=== PATIENT | female | born 1985 | race African-American/Black ===

== ENCOUNTER 2019-09-22 00:16 | Emergency (ER) | payer OTHER, SELFPAY ==
[2019-09-22 00:11] VITALS: BP 130/83; PULSE 113; RESP 20; TEMP 37.1; O2SAT 98
[2019-09-22 00:29] VITALS: O2SAT 98
[2019-09-22 00:44] VITALS: PULSE 124; RESP 24
[2019-09-22] MEDS: ALBUTEROL SULFATE NEB 2.5 MG/0.5 ML INH 5 MG INHALATION (00:44)
--- NOTE | 2019-09-22 00:44 | PC.NURSE ---
Respiratory in room with patient at this time.
[2019-09-22 00:53] VITALS: PULSE 117; RESP 18
--- NOTE | 2019-09-22 01:06 | PC.NURSE ---
This nurse went into room and spoke with patient.Patient stating she does feel better after her neb treatment. Patient states I do feel a little better, I just keep wheezing. ERP in room.
--- NOTE | 2019-09-22 01:13 | ED.ASTHMA ---
HPI - Asthma General Chief Complaint: Asthma Stated Complaint: sob Time Seen by Provider: 09/22/19 00:50 History of Present Illness HPI Narrative: Patient presents for 3 days of increasing wheezing and coughing. She is already taken a Z-Martínez without improvement. Last night she was at [facility] where they gave her steroids. Her diesel plant operator called in a Medrol Dosepak for her that she can start in the morning. She has a nebulizer at her house, with albuterol. She is 33 weeks . She is not having contractions. She wants to be admitted. complaint: asthma attack Onset (ago): day(s) Severity: moderate Related Data Allergies Allergy/AdvReac Type Severity Reaction Status Date / Time Penicillins Allergy Rash Verified 09/22/19 00:30 Review of Systems Review of Systems: Narrative: CONSTITUTIONAL: Denies fever, chills, or sweats. EYES: Denies visual changes, redness, or discharge. ENT: Denies rhinorrhea, congestion, sore throat, or otalgia. CARDIOVASCULAR: Denies chest pain, but does have fast heart rate. RESPIRATORY: He has cough and wheezing GASTROINTESTINAL: Denies abdominal pain, nausea, vomiting, or diarrhea. GENITOURINARY: Denies dysuria or hematuria. SKIN: Denies rash or itching. . [facility] Past Medical History Medical History (Updated 09/22/19 @ 01:19 by Maryanne Harrison MD) Asthma Exam Narrative: Exam Narrative: GENERAL: Well-appearing, well-nourished, and in no acute distress. HEAD: Normocephalic, atraumatic. EYES: PERRLA and EOMI. ENT: Nares clear, no rhinorrhea or epistaxis. Mucous membranes moist. NECK: Supple. CHEST: End expiratory wheezes. no respiratory distress. HEART: Regular rate and rhythm. Tacky. no murmur heard. Normal peripheral pulses. ABDOMEN: Soft, nontender, nondistended, normal active bowel sounds. EXTREMITIES: Normal range of motion. No edema. SKIN: Warm, dry, no rash. NEURO: No focal deficits. Alert and oriented x3. PSYCH: Normal mood and affect. Course Reevaluation(s) Reevaluation #1: She is so much better after her second treatment. There is only scant end expiratory wheeze left. She can be discharged to home. Date: 09/22/19 Time: 02:34 Consultations Consultation #1: Call Dr. Ham and spoke with Dr. Morrow. He said that no arrangements were made for admission. I should treat her as I feel best for her asthma. I think she can have another treatment and then be discharged to home. He agrees. Date: 09/22/19 Time: 01:17 Vital Signs Vital signs: Vital Signs Temperature 98.8 F 09/22/19 00:11 Pulse Rate 113 H 09/22/19 00:11 Respiratory Rate 20 09/22/19 00:11 Blood Pressure 130/83 09/22/19 00:11 Pulse Oximetry 98 09/22/19 00:11 Temperature 98.8 F 09/22/19 00:11 Pulse Rate 124 H 09/22/19 01:27 Respiratory Rate 22 H 09/22/19 01:27 Blood Pressure 130/83 09/22/19 00:11 Pulse Oximetry 96 09/22/19 01:27 MDM - Asthma Differential Diagnosis Differential diagnosis: Likely Acute asthmatic bronchitis Medical Records Attestation: I reviewed the patient's medical records. Discharge Plan Discharge Clinical Impression: Asthma Qualifiers: Asthma severity: mild Asthma persistence: persistent Asthma complication type: unspecified Qualified Code(s): J45.30 - Mild persistent asthma, uncomplicated Complication of Qualifiers: Trimester: third trimester Qualified Code(s): O26.93 - related conditions, unspecified, third trimester Patient Disposition: Home, Self-Care Condition: Stable Instructions: Asthma (ED) Follow-up/Referrals: Elizabeth Horn MD [Physician] - (Call make an appointment with our lung specialist for your asthma) PHYSICIAN,METER MECHANIC [Primary Care Provider] - Time of Disposition: 02:33
[2019-09-22] MEDS: ALBUTEROL SULFATE NEB 2.5 MG/0.5 ML INH 10 MG INHALATION (01:26)
[2019-09-22 01:27] VITALS: PULSE 124; RESP 22; O2SAT 96
[2019-09-22 03:03] VITALS: BP 117/70; PULSE 123; RESP 17; O2SAT 100
== END 2019-09-22 03:05 | disposition home or self-care (01) ==
PROVIDERS: Emergency Provider Emergency Medicine
DX: O99.513 Diseases of the respiratory system complicating pregnancy, third trimester (principal); Z3A.33 33 weeks gestation of pregnancy; J45.30 Mild persistent asthma, uncomplicated
CPT/HCPCS: 94640; 99283

== ENCOUNTER 2019-11-03 00:57 | Inpatient (IN) | payer OTHER, SELFPAY ==
[2019-11-03] VITALS (82 sets, daily range): BP systolic 93–167; BP diastolic 39–127; PULSE 34–297; RESP 16; TEMP 36.5–36.8; O2SAT 78–100; BMI 36.7
--- NOTE | 2019-11-03 00:57 | LDADM ---
This patient, Leslie Emmanuel, was admitted to Labor/Delivery/Recovery 106 on 11/03/19 at 00:57. Plans for labor, pain management and were discussed with patient. Patient/family oriented to hospital policies and general routines including ID bracelet, bed and alarms, visiting hours, pain management, procedures, bathroom and other care routines, personal items, smoking policy, room service/diet and guest tray routines, infant security routines, and visiting hours. Patient/Family are encouraged to report perceived risks to care and to ask questions if they do not understand what they are told or what they should do. See OBIX for further documentation.
[2019-11-03 04:20] LABS: Basophils Percent Auto 0.5 % (0.2-1.2); Eosinophils Absolute Auto 0.2 K/mm3 (0-0.3); Eosinophils Percent Auto 2.8 % (0-4.4); Hematocrit 33.9 % (37.0-47.0); Hemoglobin 10.7 g/dL (12.0-15.0); Immature Granulocyte Absolute 0.02 K/mm3 (0.00-0.031); Immature Granulocyte Percent A 0.3 % (0-0.5); Lymphocytes Absolute Auto 1.99 K/mm3 (0.9-3.2); Lymphocytes Percent Auto 26.2 % (18.3-44.2); Mean Corpuscular HGB Conc 31.6 g/dl (32-36); Mean Corpuscular Hemoglobin 23.5 pg (26-34); Mean Corpuscular Volume 74.3 fl (80-100); Mean Platelet Volume 11.3 fl (7.4-10.4); Monocytes Absolute Auto 0.6 K/mm3 (0.1-0.6); Monocytes Percent Auto 7.6 % (2.6-8.5); Neutrophils Absolute Auto 4.8 K/mm3 (1.3-6.7); Neutrophils Percent Auto 62.6 % (45.5-73.1); Platelet Count Result 307 k/mm3 (150-375); Red Blood Count 4.56 M/mm3 (4.2-5.4); Red Cell Distribution Width 17.8 % (11.5-14.5); White Blood Count 7.6 K/mm3 (4.5-10.0)
[2019-11-03] MEDS: LACTATED RINGERS 1,000 ML 125 ML IV CONT ×2 (04:26→17:38)
[2019-11-03] MEDS: CLINDAMYCIN 900 MG/NS 50 ML 900 MG/50 ML PIGGYBACK 50 MG IVPB ×2 (04:27→12:38)
[2019-11-03 04:40] LABS: Amphetamine Screen Urine Negative (Negative); Barbiturate Screen Urine Negative (Negative); Benzodiazepines Screen Urine Negative (Negative); Cannabinoid Screen Urine Negative (Negative); Cocaine Screen Urine Negative (Negative); Methadone Screen Urine Negative (Negative); Opiate Screen Urine Negative (Negative); Phencyclidine Screen Urine Negative (Negative)
--- NOTE | 2019-11-03 07:39 | WPDANESEPP ---
Anes - Eval Pre Procedure Procedure: labor epidural Date/Time: 11/03/19 07:39 Preop Diagnosis: labor pain Pre Op Diagnosis: Contractions Patient Data Age: 34 Gender: F Height: 5 ft 3 in Weight: 94 kg Last Vital Signs Temp 36.6 C 11/03/19 03:20 Pulse 86 11/03/19 07:16 BP 119/39 L 11/03/19 07:16 Allergies Allergy/AdvReac Type Severity Reaction Status Date / Time Penicillins Allergy Rash Verified 11/03/19 04:34 Home Medications Medication Instructions Recorded Confirmed Type albuterol sulfate 2 puff INHALATION Q4-6H 10/23/19 11/03/19 History albuterol sulfate 2.5 mg INHALATION TID PRN 10/23/19 11/03/19 History buspirone 10 mg PO BID 10/23/19 11/03/19 History cetirizine 10 mg PO DAILY 10/23/19 11/03/19 History ferrous sulfate [Iron (ferrous 325 mg PO BID 10/23/19 11/03/19 History sulfate)] mometasone-formoterol [Dulera] 2 puff INHALATION Q12H 10/23/19 11/03/19 History montelukast [Singulair] 10 mg PO DAILY 10/23/19 11/03/19 History [id number] fum-folic ac-om3 1 pkg PO DAILY 10/23/19 11/03/19 History [Daily ] terbutaline 2.5 mg PO PRN PRN 10/23/19 10/23/19 History Laboratory Tests 11/03/19 11/03/19 11/03/19 04:10 04:10 04:10 WBC 7.6 K/mm3 K/mm3 (4.5-10.0) RBC 4.56 M/mm3 M/mm3 (4.2-5.4) Hgb 10.7 g/dL L g/dL (12.0-15.0) Hct 33.9 % L % (37.0-47.0) MCV 74.3 fl L fl (80-100) MCH 23.5 pg L pg (26-34) MCHC 31.6 g/dl L g/dl (32-36) RDW 17.8 % H % (11.5-14.5) Plt Count 307 k/mm3 k/mm3 (150-375) MPV 11.3 fl H fl (7.4-10.4) Immature Gran % (Auto) 0.3 % % (0-0.5) Neut % (Auto) 62.6 % % (45.5-73.1) Lymph % (Auto) 26.2 % % (18.3-44.2) Branch % (Auto) 7.6 % % (2.6-8.5) Eos % (Auto) 2.8 % % (0-4.4) Baso % (Auto) 0.5 % % (0.2-1.2) Lymph # (Auto) 1.99 K/mm3 K/mm3 (0.9-3.2) Branch # (Auto) 0.6 K/mm3 K/mm3 (0.1-0.6) Eos # (Auto) 0.2 K/mm3 K/mm3 (0-0.3) Baso # (Auto) 0.0 K/mm3 K/mm3 (0.0-0.1) Abs Immat Gran (auto) 0.02 K/mm3 K/mm3 (0.00-0.031) Absolute Neuts (auto) 4.8 K/mm3 K/mm3 (1.3-6.7) Absolute Nucleated RBC 0.0 K/mm3 K/mm3 (0.0-0.012) Nucleated RBC % 0.0 % % (0.0-0.2) Urine Opiates Screen Urine Methadone Screen Ur Barbiturates Screen Ur Phencyclidine Scrn Ur Amphetamine Screen U Benzodiazepines Scrn Urine Cocaine Screen U Cannabinoids Screen RPR Pending Blood Type AB Positive Antibody Screen Negative 11/03/19 04:13 WBC RBC Hgb Hct MCV MCH MCHC RDW Plt Count MPV Immature Gran % (Auto) Neut % (Auto) Lymph % (Auto) Branch % (Auto) Eos % (Auto) Baso % (Auto) Lymph # (Auto) Branch # (Auto) Eos # (Auto) Baso # (Auto) Abs Immat Gran (auto) Absolute Neuts (auto) Absolute Nucleated RBC Nucleated RBC % Urine Opiates Screen Negative (Negative) Urine Methadone Screen Negative (Negative) Ur Barbiturates Screen Negative (Negative) Ur Phencyclidine Scrn Negative (Negative) Ur Amphetamine Screen Negative (Negative) U Benzodiazepines Scrn Negative (Negative) Urine Cocaine Screen Negative (Negative) U Cannabinoids Screen Negative (Negative) RPR Blood Type Antibody Screen Patient hx anesthesia problems: none Family hx anesthesia problems: none PMFSH Past Medical History Medical History (Updated 09/23/19 @ 00:00 by Jyotsna Carter) Asthma Family History Family History (Updated 10/23/19 @ 12:49 by Bruna Mackay RN) Father Acute myocardial infarction
[2019-11-03 09:05] LABS: Rapid Plasma Reagin Non-Reactive (NonReactive)
[2019-11-03] MEDS: OXYTOCIN 30 UNITS/NS 500 ML 30 UNITS/500 ML BAG 125 UNITS IV CONT ×2 (13:14→18:59)
--- NOTE | 2019-11-03 18:40 | P.PCNOB_ITS ---
OB - Delivery Note Procedure Route of delivery: Laceration description: Vaginal - 1st Degree Delivery repair: chromic Specimen: No Estimated blood loss (mL): 300 Anesthesia type: Epidural Disposition: floor Narrative: Patient prepped draped usual manner for this procedure. Maternal expulsive efforts readily delivered vertex. Rest of baby was delivered without difficulty cord clamped cut and the placenta delivered spontaneously. Uterus was well contracted and inspection of the cervix vagina and vulva revealed first-degree laceration. This was approximated using 2 0 chromic in a running interlocking manner with good approximation hemostasis noted. This point seizure was considered terminated. [place] Baby Weeks of gestation at delivery: 38 Infant gender: Male Weight (pounds): 7 Weight (ounces): 8 score one minute: 9 score five minutes: 9
[2019-11-03] MEDS: BENZOCAINE 20% AER SPR (*SP) 56 GM CAN 1 SPRAY TOPICAL (20:37)
[2019-11-03] MEDS: WITCH HAZEL 40 PADS 1 PAD TOPICAL (20:37)
[2019-11-03] MEDS: IBUPROFEN 600 MG TABLET PO (20:37)
[2019-11-04] MEDS: ACETAMINOPHEN 325 MG TABLET 650 MG PO ×2 (00:59→11:15)
--- NOTE | 2019-11-04 01:50 | PC.NURSE ---
This patient, Leslie Emmanuel, was received from Labor and Delivery on 11/03/19 [id number]. Personal belongings list checked and signed. Patient/family oriented to unit policies and routines
[2019-11-04 05:19] LABS: Hematocrit 31.6 % (37.0-47.0); Hemoglobin 10.2 g/dL (12.0-15.0)
--- NOTE | 2019-11-04 07:28 | WPDANLDPN2 ---
Anes-Prog Note L&D Date/Time: 11/04/19 07:28 Comfortable throughout: labor and delivery Neuraxial method: epidural Epidural/Spinal procedure site: clean & non-tender Neuro status: Neuro function grossly intact. Cardiovascular status: normal Respiratory status: normal Airway patency: baseline Mental status: baseline Post-Op hydration status: normal Vital Signs: Last Vital Signs Temp 36.6 C 11/03/19 22:00 Pulse 69 11/03/19 22:00 Resp 16 11/03/19 22:00 BP 133/86 11/03/19 22:00 Pulse Ox 100 11/03/19 22:00 I/O: Intake & Output 11/03/19 11/03/19 11/04/19 15:59 23:59 07:59 Intake Total 1950 Output Total 402 Balance 1548 Post-procedural complaints: none Patient feedback: Patient satisfied with anesthetic care.
[2019-11-04 07:30] VITALS: BP 112/76; PULSE 83; RESP 18; TEMP 36.8; O2SAT 100
[2019-11-04] MEDS: IBUPROFEN 600 MG TABLET PO ×3 (07:57→23:25)
[2019-11-04] MEDS: MULTIVIT/MIN/PREN/FOL AC/IRON TABLET 1 TAB PO (11:13)
[2019-11-04] MEDS: MONTELUKAST SODIUM 10 MG TABLET PO (14:34)
[2019-11-04] MEDS: FERROUS SULFATE 324 MG TABLET PO (14:34)
--- NOTE | 2019-11-04 20:10 | PM.IMHP ---
H&P: HPI History of Present Illness Date/Time: 11/03/19 03:10 Chief complaint: Contractions Narrative: Leslie Emmanuel is a 34 year old female at 39 weeks rowdy 11/11/19 here in spontaneous labor Review of Systems Review of Systems: All systems reviewed & are unremarkable except as noted in HPI and below Constitutional: Constitutional: Reports no additional constitutional complaints Eyes: Eyes: Reports no additional eye complaints ENT: Reports system reviewed and no additional complaints, except as documented Cardiovascular: Cardiovascular: Reports no additional cardiovascular complaints Respiratory: Respiratory: Reports no additional respiratory complaints Gastrointestinal: Gastrointestinal: Reports no additional gastrointestinal complaints Genitourinary: Genitourinary: Reports no additional female genitourinary complaints Musculoskeletal: Musculoskeletal: Reports no additional musculoskeletal complaints Integumentary/Breasts: Skin/Breast: Reports system reviewed and no additional complaints, except as docu Neurologic: Reports system reviewed and no additional complaints, except as documented Psychiatric: Psychiatric: Reports no additional psychiatric complaints Endocrine: Endocrine: Reports no additional endocrine complaints Hematologic/Lymphatic: Hematologic/Lymphatic: Reports no additional hematologic/lymphatic complaints Allergic/Immunologic: Allergic/Immunologic: Reports no additional allergic/immunologic complaints [facility] Past Medical History Medical History (Updated 11/04/19 @ 20:21 by Nash Ham MD) Anemia Asthma Cardiac arrhythmia KEELY (generalized anxiety disorder) GBS (group B streptococcus) infection MRSA (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 Panic disorder with agoraphobia Vaginal delivery 2000,2004,2006,2008,2011,2015 4 boys 2 girls Family History Family History Father Acute myocardial infarction Mother Cerebrovascular accident Grandparent Cerebrovascular accident Diabetes mellitus Social History Social History (Updated 11/04/19 @ 20:18 by Nash Ham MD) Smoking packs per day: 1 Smoking cigarettes per day: 20.0 Years smoked: 10 Smoking pack-years: 10.00 Smoking status: Former smoker Tobacco type: cigarettes Second hand tobacco smoke exposure: Yes Alcohol intake: never Substance use: never Substance use type: does not use Living arrangements: with family Occupation/Education: occupation 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 Gender identity (if verbalized by the patient): Female Sexual Orientation (if Verbalized by the Patient): Straight or Heterosexual Spiritual care concerns: No Agree to blood products: Yes Meds Home Medications and Allergies Home Medications Medication Instructions Recorded Confirmed Type albuterol sulfate 2 puff INHALATION Q4-6H 10/23/19 11/03/19 History albuterol sulfate 2.5 mg INHALATION TID PRN 10/23/19 11/03/19 History buspirone 10 mg PO BID 10/23/19 11/03/19 History cetirizine 10 mg PO DAILY 10/23/19 11/03/19 History ferrous sulfate [Iron (ferrous 325 mg PO BID 10/23/19 11/03/19 History sulfate)] mometasone-formoterol [Dulera] 2 puff INHALATION Q12H 10/23/19 11/03/19 History montelukast [Singulair] 10 mg PO DAILY 10/23/19 11/03/19 History [id number] fum-folic ac-om3 1 pkg PO DAILY 10/23/19 11/03/19 History [Daily ] terbutaline 2.5 mg PO PRN PRN 10/23/19 10/23/19 History Allergies Allergy/AdvReac Type Severity Reaction Status Date / Time Penicillins Allergy Rash Verified 11/03/19 04:34 Vital Signs Vital Signs - 24 hr 11/03/19 20:15 11/03/19 20:30 11/03/19 22:00 Temperature 97.8 F Pulse Rate 62 62 69 Respiratory Rate 16 Blood Pressure 130/86 126/86 133/86 Pulse Oximetry 100 11/04/19 07:30 Temperature 98.2 F Pulse Rate 83 Respiratory Rate
--- NOTE | 2019-11-04 20:22 | WPDOBADMIT ---
Obstetrics - Admit Note Admission Note: record reviewed. No pertinent additions to the history and/or any subsequent changes in the physical findings that are not consistent with the expected course of the were found. Additions to the history and/or subsequent changes in the physical findings follow. None. sool fht stable
--- NOTE | 2019-11-04 20:22 | WPDHPUPDATE1 ---
History and Physical Update Update Date/Time: 11/04/19 20:22 History and Physical has been reviewed, including an updated exam of the patient. There are NO changes in the patient's condition. Risks, benefits, and alternatives have been discussed and questions answered. Patient agrees to proceed with procedure.
--- NOTE | 2019-11-04 22:37 | PM.OBDSVD ---
DS: Admitting Diagnosis Admitting Diagnosis Admitting Diagnosis: Contractions term spontaneous labor DS: Discharge Diagnosis Discharge Diagnosis (1) Term delivered: Code(s): O80 - Encounter for full-term uncomplicated delivery Status: Acute (2) Spontaneous onset of labor: Status: Acute (3) Term : Code(s): Z34.90 - Encounter for supervision of normal , unspecified, unspecified trimester Status: Acute (4) Anemia: Code(s): D64.9 - Anemia, unspecified Status: Acute (5) Cardiac arrhythmia: Code(s): I49.9 - Cardiac arrhythmia, unspecified Status: Acute (6) KEELY (generalized anxiety disorder): Code(s): F41.1 - Generalized anxiety disorder Status: Acute (7) GBS (group B streptococcus) infection: Code(s): A49.1 - Streptococcal infection, unspecified site Status: Acute (8) MRSA (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: Code(s): Z22.322 - Carrier or suspected carrier of Methicillin resistant Staphylococcus aureus Status: Acute (9) Panic disorder with agoraphobia: Code(s): F40.01 - Agoraphobia with panic disorder Status: Acute OB - DS: Summary Hospital Course Time spent discussing smoking cessation with patient: 3 to 10 minutes OB Procedures : Ultrasound OB Procedures Intrapartum: Spontaneous Vag Delivery OB Procedures: : None Peripartum Data Infant Delivery Method: Natural Vaginal Laceration description: Perineal - 1st Degree complications: none [place] 1: Gender: Male Disposition of : home Status at Discharge Functional status at discharge: independent ambulation Overall status at discharge: patient is progressing back to baseline Time Spent with Patient Time attestation: Total time spent providing and/or coordinating discharge services: Exam Const: General: comfortable and no acute distress Orientation/consciousness: patient oriented x3 Limitations: no limitations HENMT: Head: normal to inspection Eyes: General: appearance normal, both eyes and all related structures Neck: Neck: normal visual inspection Chest: Breast/axilla inspection: normal inspection of the breasts Resp: Effort & Inspection: normal respiratory effort Auscultation: clear to auscultation bilaterally Cardio: Rate: regular rate GI: GI Palp: Yes Soft to palpation Percussion: Yes normal to percussion Auscultation: normal bowel sounds : General: Yes bladder normal to inspection Back/Spine/Pelvis: Back: no CVA tenderness Skin: General skin exam: normal color Neuro: General: oriented to person, oriented to place and patient oriented x3 Cognition (Neuro): normal cognition Speech: normal speech Gait exam (Neuro): Normal gait present Motor exam (neuro): 5/5 motor strength present throughout Extrem: General: normal to inspection and full ROM Psych: Appearance: grossly normal Mental Status: mental status grossly normal Affect: normal affect Attitude: cooperative Thought content: Yes Normal thought content present Judgement: Good judgement present (Psych) DS: Data Data Completed and Pending Labs on day of discharge: Labs from last 24 hours 11/04/19 04:48 Hgb 10.2 L Hct 31.6 L Discharge Plan Discharge Attending physician on discharge: Nash Ham Discharging Clinician: Nash Ham Anticipated Discharge Date/Time: 11/05/19 19:40 Patient Disposition: Home, Self-Care Activity: may shower, no straining and may drive after 2 weeks Diet: as tolerated Wound Care Instructions: follow printed instructions Patient Instructions: Antibiotic Form Stand Alone Forms: General Discharge Information Follow-up/Referrals: Nash Ham MD [Physician] - Discharge Medications: New ibuprofen 600 mg Tablet 600 mg PO Q6H Qty: 90 RF: 1 Continued ferrous sulfate [Iron (radha
--- NOTE | 2019-11-04 22:57 | PM.OBPNVD ---
OB - PN: Subj Subjective Date/time seen: 11/04/19 22:57 ppd1 s/p vag del Patient comments: no complaints, pain well controlled, tolerating diet and flatus present baby status: doing well feeding status: breast and bottle feeding OB - PN: Obj Data Labs CBC & Chem 7: 11/04/19 04:48 Labs: Laboratory Results - last 24 hr 11/04/19 04:48 Hgb 10.2 L Hct 31.6 L OB - PN A/P Assessment and Plan (1) Term delivered: Code(s): O80 - Encounter for full-term uncomplicated delivery Status: Acute (2) GBS (group B streptococcus) infection: Code(s): A49.1 - Streptococcal infection, unspecified site Status: Acute (3) MRSA (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: Code(s): Z22.322 - Carrier or suspected carrier of Methicillin resistant Staphylococcus aureus Status: Acute (4) Asthma: Qualifiers: Asthma complication type: unspecified Asthma persistence: persistent Asthma severity: mild Qualified Code(s): J45.30 - Mild persistent asthma, uncomplicated Code(s): J45.909 - Unspecified asthma, uncomplicated Status: Acute Time Spent With Patient Time: Total time spent is greater than 50% in coordination of care (as documented) at patient's floor/unit and/or counseling patient: Review of Systems Review of Systems: All systems reviewed & are unremarkable except as noted in HPI and below Constitutional: Constitutional: Reports no additional constitutional complaints Cardiovascular: Cardiovascular: Reports no additional cardiovascular complaints Respiratory: Respiratory: Reports no additional respiratory complaints Gastrointestinal: Gastrointestinal: Reports no additional gastrointestinal complaints Genitourinary: Genitourinary: Reports no additional female genitourinary complaints Integumentary/Breasts: Skin/Breast: Reports system reviewed and no additional complaints, except as docu Neurologic: Reports system reviewed and no additional complaints, except as documented Exam Const: General: comfortable and no acute distress Orientation/consciousness: patient oriented x3 Chest: Breast/axilla inspection: normal inspection of the breasts Breast/axilla palpation: normal palpation of the breasts Resp: Effort & Inspection: normal respiratory effort Auscultation: clear to auscultation bilaterally Cardio: Rate: regular rate GI: Auscultation: normal bowel sounds : General: Yes bladder normal to inspection and Yes no CVA tenderness Psych: Appearance: grossly normal Mental Status: mental status grossly normal Affect: normal affect Attitude: cooperative Judgement: Good judgement present (Psych)
[2019-11-04] MEDS: LORATADINE 10 MG TABLET PO (23:25)
[2019-11-04 23:30] VITALS: BP 130/88; PULSE 73; RESP 16; TEMP 36.8; O2SAT 100
[2019-11-05 08:40] VITALS: BP 136/76; PULSE 82; RESP 16; TEMP 36.6; O2SAT 100
[2019-11-05] MEDS: IBUPROFEN 600 MG TABLET PO (09:17)
[2019-11-05] MEDS: LORATADINE 10 MG TABLET PO (09:18)
[2019-11-05] MEDS: DOCUSATE SODIUM 100 MG CAPSULE PO (09:18)
[2019-11-05] MEDS: MONTELUKAST SODIUM 10 MG TABLET PO (09:20)
[2019-11-05] MEDS: FERROUS SULFATE 324 MG TABLET PO (09:20)
[2019-11-05] MEDS: ACETAMINOPHEN 325 MG TABLET 650 MG PO (11:39)
--- NOTE | 2019-11-05 13:09 | PCCCNOTE ---
Care Coordination met with pt. this morning to discuss discharge planning. Per pt.'s RN, pt. informed them that she only has limited supplies to bring baby home. Pt. states that this baby his her eighth child and that there are 7 children in the home. Pt. could not confirm with CC who was watching the children at home while she was hospitalized. Pt. states she has a place for baby to sleep, clothes, and diapers for baby. Pt. does not have a car seat and will be provided one from nursing. Pt. states that she has local family support if needed but she has been social distancing due to Covid 19. FOB does not live in the home and does not appear to be supportive. Pt. states she will return home with her children alone and denies the need for any further support once home. Pt. was provided with resources if needed, she confirms she is current with [facility]. Pt. denies any open or past DCFS cases. Pt. denies any discharge needs at this time and has no concerns with bringing baby home. Will follow.
--- NOTE | 2019-11-05 16:53 | PC.NURSE ---
[id number] Pt watched the Discharge DVD.
--- NOTE | 2019-11-06 02:11 | PCRCNOTE ---
Window of time for administration has passed. See next scheduled administration.
[2019-11-06 09:10] VITALS: BP 126/86; PULSE 63; RESP 20; TEMP 37.1; O2SAT 100
--- NOTE | 2019-11-06 13:46 | PM.OBPNVD ---
OB - PN: Subj Subjective Date/time seen: 11/05/19 13:46 Patient comments: no complaints baby status: doing well [place] feeding status: breast and bottle feeding OB - PN: Obj Data Labs CBC & Chem 7: 11/04/19 04:48 OB - PN A/P Assessment and Plan (1) Term delivered: Code(s): O80 - Encounter for full-term uncomplicated delivery Status: Acute (2) Anemia: Code(s): D64.9 - Anemia, unspecified Status: Acute (3) Cardiac arrhythmia: Code(s): I49.9 - Cardiac arrhythmia, unspecified Status: Acute (4) KEELY (generalized anxiety disorder): Code(s): F41.1 - Generalized anxiety disorder Status: Acute (5) GBS (group B streptococcus) infection: Code(s): A49.1 - Streptococcal infection, unspecified site Status: Acute (6) MRSA (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: Code(s): Z22.322 - Carrier or suspected carrier of Methicillin resistant Staphylococcus aureus Status: Acute (7) Panic disorder with agoraphobia: Code(s): F40.01 - Agoraphobia with panic disorder Status: Acute (8) Asthma: Qualifiers: Asthma complication type: unspecified Asthma persistence: persistent Asthma severity: mild Qualified Code(s): J45.30 - Mild persistent asthma, uncomplicated Code(s): J45.909 - Unspecified asthma, uncomplicated Status: Acute Time Spent With Patient Time: Total time spent is greater than 50% in coordination of care (as documented) at patient's floor/unit and/or counseling patient: Review of Systems Review of Systems: All systems reviewed & are unremarkable except as noted in HPI and below Constitutional: Constitutional: Reports no additional constitutional complaints Cardiovascular: Cardiovascular: Reports no additional cardiovascular complaints Respiratory: Respiratory: Reports no additional respiratory complaints Gastrointestinal: Gastrointestinal: Reports no additional gastrointestinal complaints Genitourinary: Genitourinary: Reports no additional female genitourinary complaints Integumentary/Breasts: Skin/Breast: Reports system reviewed and no additional complaints, except as docu Neurologic: Reports system reviewed and no additional complaints, except as documented Exam Const: General: comfortable, no acute distress, alert and awake Chest: Breast/axilla inspection: normal inspection of the breasts Resp: Effort & Inspection: normal respiratory effort Cardio: Rate: regular rate GI: Auscultation: normal bowel sounds : General: Yes no CVA tenderness Psych: Appearance: grossly normal Mental Status: mental status grossly normal Affect: normal affect Attitude: cooperative Judgement: Good judgement present (Psych)
--- NOTE | 2019-11-06 13:49 | PM.OBDSVD ---
DS: Admitting Diagnosis Admitting Diagnosis Admitting Diagnosis: Contractions Term spontaneous onset of labor DS: Discharge Diagnosis Discharge Diagnosis (1) Term delivered: Code(s): O80 - Encounter for full-term uncomplicated delivery Status: Acute (2) Spontaneous onset of labor: Status: Acute (3) Term : Code(s): Z34.90 - Encounter for supervision of normal , unspecified, unspecified trimester Status: Acute (4) Anemia: Code(s): D64.9 - Anemia, unspecified Status: Acute (5) Cardiac arrhythmia: Code(s): I49.9 - Cardiac arrhythmia, unspecified Status: Acute (6) KEELY (generalized anxiety disorder): Code(s): F41.1 - Generalized anxiety disorder Status: Acute (7) GBS (group B streptococcus) infection: Code(s): A49.1 - Streptococcal infection, unspecified site Status: Acute (8) MRSA (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: Code(s): Z22.322 - Carrier or suspected carrier of Methicillin resistant Staphylococcus aureus Status: Acute (9) Panic disorder with agoraphobia: Code(s): F40.01 - Agoraphobia with panic disorder Status: Acute (10) Asthma: Qualifiers: Asthma complication type: unspecified Asthma persistence: persistent Asthma severity: mild Qualified Code(s): J45.30 - Mild persistent asthma, uncomplicated Code(s): J45.909 - Unspecified asthma, uncomplicated Status: Acute OB - DS: Summary OB Procedures : Ultrasound OB Procedures Intrapartum: Spontaneous Vag Delivery and GBS prophylaxis OB Procedures: : None Peripartum Data Infant Delivery Method: Natural Vaginal Laceration description: Perineal - 1st Degree complications: none [place] 1: Gender: Male Disposition of : home Status at Discharge Functional status at discharge: independent ambulation Overall status at discharge: patient is back to baseline Time Spent with Patient Time attestation: Total time spent providing and/or coordinating discharge services: Time spent: Less than 30 minutes Exam Const: General: comfortable, no acute distress, alert and awake Orientation/consciousness: patient oriented x3 Limitations: no limitations Chest: Breast/axilla inspection: normal inspection of the breasts Breast/axilla palpation: normal palpation of the breasts Resp: Effort & Inspection: normal respiratory effort Auscultation: clear to auscultation bilaterally Cardio: Rate: regular rate GI: GI Palp: Yes Soft to palpation Percussion: Yes normal to percussion : General: Yes no CVA tenderness Manual OB Exam: Deferred manual OB exam Psych: Appearance: grossly normal Mental Status: mental status grossly normal Affect: normal affect Attitude: cooperative Thought content: Yes Normal thought content present Judgement: Good judgement present (Psych) Discharge Plan Discharge Attending physician on discharge: Nash Ham Discharging Clinician: Nash Ham Anticipated Discharge Date/Time: 11/05/19 19:40 Patient Disposition: Home, Self-Care Activity: may shower, no straining and may drive after 2 weeks Diet: as tolerated Wound Care Instructions: follow printed instructions Discharge Instructions: Education: Mom and Baby Guide Given to: Mother Follow-Up: Call your delivering provider's office for an appointment to be seen in: call for appointment as directed Mom and baby should come to the [facility] for the follow-up appointment. Appointment Date/Time: November 06, 2019 at 9:00 am What to expect at your follow-up visit: Blood Pressure Check Physical Assessment Call [phone] if you are unable to keep your appointment time. BREAST CARE: * Wear a snug supportive bra. * For engorgement discomfort: Bottle Feeding: * May apply ice packs
== END 2019-11-05 13:34 | disposition home or self-care (01) | DRG 560 ==
LOC: ANHLDR 03:57 → ANHOB2 21:27
PROVIDERS: Admitting Provider Obstetrics & Gynecology; PCP Internal Medicine; Visit Provider Obstetrics & Gynecology
DX: O99.824 Streptococcus B carrier state complicating childbirth (principal); Z37.0 Single live birth; Z3A.38 38 weeks gestation of pregnancy; O99.02 Anemia complicating childbirth; O70.0 First degree perineal laceration during delivery; Z23 Encounter for immunization; D64.9 Anemia, unspecified; J45.909 Unspecified asthma, uncomplicated; O99.52 Diseases of the respiratory system complicating childbirth; F41.1 Generalized anxiety disorder; O99.344 Other mental disorders complicating childbirth; F40.01 Agoraphobia with panic disorder
CPT/HCPCS: 36415; 80307; 85014; 85018; 85025; 86592; 86850; 86900; 86901; 90471; 90686; 94640; A9270; G0008; J2590; J2795; J3010; J7120

== ENCOUNTER 2019-11-11 14:58 | Emergency (ER) | payer OTHER, SELFPAY ==
--- NOTE | ~2019-11-11 | CT_ITS ---
EXAMINATION: CT brain wo con EXAM DATE: 11/11/2019 20:00 INDICATION: Left-sided facial numbness. TECHNIQUE: Spiral CT of the head was performed without contrast. Axial, coronal and sagittal images were reviewed. The dose-length product (DLP) for this examination was 605.33 mGy-cm. The exposure w as tailored according to patient size, and iterative reconstruction (ASIR) was used as additional dos e reduction technique. There is no prior study for comparison. FINDINGS: Pituitary gland measures about 1.8 x 1.4 x 1.0 cm, mildly enlarged. Possibility of underlyi ng pituitary mass, statistically adenoma would be most likely. There is no acute intraparenchymal hemorrhage. No evidence of acute infarction. There is no mass ef fect or midline shift. The ventricles are normal in size. There are no extra-axial collections. Th ere are no acute calvarial fractures. The orbits are unremarkable. Soft tissue is unremarkable. The visualized sinuses and mastoid air cells are well aerated. IMPRESSION: 1. Mildly enlarged pituitary, can't exclude underlying mass. Consider follow-up nonemergent pituit tin MRI with contrast for further evaluation. 2. No acute intracranial findings. Reviewed, dictated and finalized at location A. IMPRESSION: 1. Mildly enlarged pituitary, can't exclude underlying mass. Consider follow -up nonemergent pituitary MRI with contrast for further evaluation. 2. No acute intracranial findings.
[2019-11-11 16:34] VITALS: BP 129/90; PULSE 90; RESP 16; TEMP 36.7; O2SAT 100
--- NOTE | 2019-11-11 17:10 | ECG_ITS ---
Measurements Intervals [place] Rate: 72 P: 43 [place]: 158 QRS: 11 QRSD: 97 T: 23 QT: 354 QTc: 390 Interpretive Statements SINUS RHYTHM WITH SINUS ARRHYTHMIA BORDERLINE T WAVE ABNORMALITY- INFERIOR LEADS BASELINE ARTIFACT- I, II, III BORDERLINE ECG Electronically Signed On 11-12-2019 6:59:31 CDT by Juan Leong D.O.
[2019-11-11 18:44] LABS: Basophils Absolute Auto 0.1 K/mm3 (0.0-0.1); Eosinophils Absolute Auto 0.4 K/mm3 (0-0.3); Eosinophils Percent Auto 5.6 % (0-4.4); Hematocrit 42.7 % (37.0-47.0); Hemoglobin 13.3 g/dL (12.0-15.0); Immature Granulocyte Absolute 0.01 K/mm3 (0.00-0.031); Immature Granulocyte Percent A 0.1 % (0-0.5); Lymphocytes Absolute Auto 2.19 K/mm3 (0.9-3.2); Lymphocytes Percent Auto 32.2 % (18.3-44.2); Mean Corpuscular HGB Conc 31.1 g/dl (32-36); Mean Corpuscular Hemoglobin 23.6 pg (26-34); Mean Corpuscular Volume 75.7 fl (80-100); Monocytes Absolute Auto 0.4 K/mm3 (0.1-0.6); Monocytes Percent Auto 5.7 % (2.6-8.5); Neutrophils Absolute Auto 3.8 K/mm3 (1.3-6.7); Neutrophils Percent Auto 55.4 % (45.5-73.1); Platelet Count Result 374 k/mm3 (150-375); Red Blood Count 5.64 M/mm3 (4.2-5.4); Red Cell Distribution Width 18.2 % (11.5-14.5); White Blood Count 6.8 K/mm3 (4.5-10.0)
[2019-11-11 18:54] LABS: Prothrombin Time 12.9 Seconds (11.1-14.7)
[2019-11-11 18:55] LABS: Partial Thromboplastin Time 30.7 SECONDS (22.3-36.8)
[2019-11-11 18:56] LABS: Alanine Aminotransferase 31 U/L (4-35); Albumin Level 4.2 g/dL (3.5-5.1); Alkaline Phosphatase 116 U/L (38-126); Anion Gap 7 mmol/L (8-16); Aspartate Amino Transferase 44 U/L (14-36); Bilirubin,Total 0.4 mg/dL (0.2-1.3); Blood Urea Nitrogen 14 mg/dL (7-17); Calcium 9.3 mg/dL (8.4-10.2); Carbon Dioxide 23 mmol/L (22-30); Chloride 106 mmol/L (98-107); Estimated CRCL calculation 82 ml/min; Estimated Glomerular Filt Rate > 60; Glucose 92 mg/dL (65-105); Potassium 4.1 mmol/L (3.4-5.0); Sodium 136 mmol/L (137-145)
--- NOTE | 2019-11-11 19:30 | ED.NEUROSD ---
HPI - Neuro Symptoms/Deficit General Chief Complaint: Neuro Symptoms/Deficit Stated Complaint: tingling L hand and L foot Time Seen by Provider: 11/11/19 19:28 History of Present Illness HPI Narrative: Awoke this morning with tingling on the entire left side of her body. She still has sensation it just feels different. Has not changed throughout the day. She had an epidural for child 8 days ago and had been doing well since that time. She does continue to pass large clots. No weakness, dizziness, problems with coordination or speech. Related Data Home Medications Medication Instructions Recorded Confirmed Daily 1 pkg PO DAILY 10/23/19 11/03/19 Dulera 2 puff INHALATION Q12H 10/23/19 11/03/19 albuterol sulfate 2 puff INHALATION Q4-6H 10/23/19 11/03/19 buspirone 10 mg PO BID 10/23/19 11/03/19 cetirizine 10 mg PO DAILY 10/23/19 11/03/19 ferrous sulfate [Iron (ferrous 325 mg PO BID 10/23/19 11/03/19 sulfate)] montelukast [Singulair] 10 mg PO DAILY 10/23/19 11/03/19 Allergies Allergy/AdvReac Type Severity Reaction Status Date / Time Penicillins Allergy Intermediate Rash Verified 11/11/19 16:39 Review of Systems Review of Systems: All systems reviewed & are unremarkable except as noted in HPI and below Constitutional: Constitutional: Denies fever(s) and Denies weakness Eyes: Eyes: Denies change in vision ENT: Denies dizziness Cardiovascular: Cardiovascular: Denies chest pain Respiratory: Respiratory: Denies dyspnea Gastrointestinal: Gastrointestinal: Denies abdominal pain Musculoskeletal: Musculoskeletal: Denies back pain Neurologic: Denies dizziness, Denies headache(s) and Denies weakness [facility] Past Medical History Medical History Anemia Asthma Cardiac arrhythmia KEELY (generalized anxiety disorder) GBS (group B streptococcus) infection MRSA (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 Panic disorder with agoraphobia Vaginal delivery 2000,2004,2006,2008,2011,2014 4 boys 2 girls Social History Social History (Updated 11/04/19 @ 20:18 by Nash Ham MD) Smoking packs per day: 1 Smoking cigarettes per day: 20.0 Years smoked: 10 Smoking pack-years: 10.00 Smoking status: Former smoker Tobacco type: cigarettes Second hand tobacco smoke exposure: Yes Alcohol intake: never Substance use: never Substance use type: does not use Additional occupation/education comments: [employer] 12th grade education Gender identity (if verbalized by the patient): Female Spiritual care concerns: No Agree to blood products: Yes Exam Const: General: healthy appearing, no acute distress and alert Orientation/consciousness: patient oriented x3 HENMT: Head: normal to inspection Eyes: Pupils: Equal, round and reactive pupils present Neck: Neck: normal visual inspection Chest: Chest palpation & inspection: no tenderness Resp: Effort & Inspection: normal respiratory effort Auscultation: clear to auscultation bilaterally, no rales, no rhonchi and no wheezes Cardio: Jugular venous distension: no JVD Rate: regular rate Rhythm: regular rhythm Heart sounds: no murmurs GI: Inspection: non-distended GI Palp: Yes Soft to palpation and No Tenderness to palpation present (GI) Skin: General skin exam: normal color Rashes: rash noted Wounds: wound noted Neuro: General: patient oriented x3, moves all extremities, No no focal motor deficits and No CN's II-XI intact bilaterally Speech: normal speech Gait exam (Neuro): Normal gait present Other: Sensation grossly intact throughout Extrem: General: no edema Psych: Appearance: well kempt Affect: normal affect Course Vital Signs Vital signs: Vital Signs Temperature 36.7 C 11/11/19 16:34 Pulse Rate 90 11/11/19 16:34 Respiratory Rate 16 11/11/19 16:34 Blood Pressure 129/90 11/11/19 16:34 Pulse Oximetry 100 11/11/19 16:34 [place]
[2019-11-11 21:05] VITALS: BP 124/86; PULSE 88; RESP 16; TEMP 37.1; O2SAT 100
== END 2019-11-11 21:06 | disposition home or self-care (01) ==
PROVIDERS: General Practice; Emergency Provider Emergency Medicine; PCP Internal Medicine
DX: O99.89 Other specified diseases and conditions complicating pregnancy, childbirth and the puerperium (principal); R20.2 Paresthesia of skin; O99.53 Diseases of the respiratory system complicating the puerperium; J45.909 Unspecified asthma, uncomplicated; O99.345 Other mental disorders complicating the puerperium; F40.01 Agoraphobia with panic disorder; O90.81 Anemia of the puerperium; Z87.891 Personal history of nicotine dependence; Z86.14 Personal history of Methicillin resistant Staphylococcus aureus infection
CPT/HCPCS: 36415; 70450; 80053; 85025; 85610; 85730; 93005; 99284

== ENCOUNTER 2020-01-20 15:12 | Outpatient (CLI) | payer OTHER, SELFPAY ==
--- NOTE | ~2020-01-20 | MR_ITS ---
EXAMINATION: MR pituitary wo/w con EXAM DATE: 01/20/2020 16:31 INDICATION: Pituitary gland disorder. Abnormal STT, pituitary gland enlargement. TECHNIQUE: Magnetic resonance imaging (MRI) of the brain/brain stem obtained without contrast. Sagit otis T1, axial diffusion, gradient echo (T2*), T1, T2, FLAIR sequences obtained. Patient was then inj ected with 15 cc intravenous Multihance contrast. Axial and coronal postcontrast T1 weighted sequence s obtained. A pituitary protocol was utilized including dynamic imaging through the pituitary gland d uring intravenous injection of contrast. There are no prior studies for comparison. FINDINGS: The left internal carotid artery has some tortuosity, bulges into the sella turcica, likely causing the mild rightward pituitary infundibulum midline shift and asymmetry in the pituitary gland . The pituitary gland is confined to the sella turcica. Suprasellar region normal in appearance. Th e optic chiasm normal. No definite pituitary microadenoma identified. There are no areas of restricted diffusion to suggest acute infarction. There is no acute hemorrhage seen on the T2*, a hemosiderin sensitive sequence. No intraparenchymal brain mass. The ventricles a re normal in size. There are no extra-axial collections. Flow voids are seen in the cerebral arteri es on the T2-weighted sequences consistent with their expected patency. The orbits are unremarkable. Soft tissue is unremarkable. There are no areas of abnormal enhancement on the postcontrast image s. IMPRESSION: 1. Left internal carotid tortuosity into sella turcica causing pituitary asymmetry. No pituitary mas s. 2. Otherwise unremarkable MR brain exam. Reviewed, dictated and finalized at location A. [employer] IMPRESSION: 1. Left internal carotid tortuosity into sella turcica causing pituitary asymm etry. No pituitary mass. 2. Otherwise unremarkable MR brain exam.
[2020-01-20 15:53] LABS: Estimated Glomerular Filt Rate > 60
== END 2020-01-20 15:13 | disposition home or self-care (01) ==
PROVIDERS: PCP Internal Medicine; Visit Provider Internal Medicine
DX: E23.7 Disorder of pituitary gland, unspecified (principal)
CPT/HCPCS: 70553; A9577

== ENCOUNTER 2020-11-22 12:19 | Outpatient (CLI) | payer OTHER, SELFPAY ==
--- NOTE | 2020-11-22 14:52 | PCRCNOTE ---
METHACHOLINE CHALLENGE TEST WAS FAXED TO PAULINE AT [facility] AND SPOKE TO PAULINE IN REGARDS TO POSITIVE TEST WITH DILUENT.
== END 2020-11-22 12:20 | disposition home or self-care (01) ==
LOC: ANHPFT 12:24
PROVIDERS: PCP Internal Medicine; Visit Provider Nurse Practitioner
DX: J45.909 Unspecified asthma, uncomplicated (principal)
CPT/HCPCS: 94070; J7674